=== PATIENT | female | born 1980 | race Caucasian/White ===

== ENCOUNTER 2019-01-09 07:12 | Emergency (ER) | payer OTHER ==
[~2019-01-09] VITALS: Ht 175.3 cm; Wt 100.2 kg
[2019-01-09 07:19] VITALS: Ht 175.3 cm; Wt 100.2 kg
[2019-01-09 09:12] VITALS: BP 126/86
== END 2019-01-09 10:00 | disposition home or self-care (01) ==
LOC: ED 07:12
DX: J20.9 Acute bronchitis, unspecified (principal); E03.9 Hypothyroidism, unspecified
CPT/HCPCS: J7512; J7620